=== PATIENT | male | born 1985 | race American Indian/Alaskan Native ===

== ENCOUNTER 2019-01-25 18:27 | Emergency (ER) | payer OTHER ==
--- NOTE | 2019-01-25 19:12 | Emergency Department Report ---
Chief Complaint: Abdominal Pain Stated Complaint: LFT SIDE NUMB/ABD PAIN Time Seen by Provider: 01/25/19 19:09 - HPI History of Present Illness: This is a 33 y.o. M. that presents to the ER with abdominal pain x 2 months. Reports numbness to left lateral leg. States pain was initially intermittent and today constant, sharp in intensity. Denies N/V/D - Exam Vital Signs: Vital Signs 01/25/19 19:09 Temperature 98.5 F Pulse Rate 59 L Respiratory 18 Rate Blood Pressure 107/71 O2 Sat by Pulse 100 Oximetry MSE screening note: Focused history and physical exam performed. Due to findings the following was ordered: Labs ED Disposition for MSE Condition: Stable
[2019-01-25 19:35] LABS: Basophils % (Auto) 0.3 % (0.0-1.8); Eosinophils # (Auto) 0.1 K/mm3 (0.0-0.4); Eosinophils % (Auto) 0.7 % (0.0-4.3); Hematocrit 46.8 % (35.5-45.6); Hemoglobin 15.7 gm/dl (11.8-15.2); Lymphocytes % (Auto) 20.7 % (13.4-35.0); Mean Corpuscular HGB Conc 34 % (32-34); Mean Corpuscular Volume 85 fl (84-94); Monocytes % (Auto) 10.4 % (0.0-7.3); Platelet Count 284 K/mm3 (140-440); Red Blood Count 5.52 M/mm3 (3.65-5.03)
[2019-01-25 19:51] LABS: Bilirubin,Urine NEG (Negative); Blood,Urine NEG (Negative); Color,Urine Yellow (Yellow); Protein,Urine <15 mg/dL mg/dL (Negative); Urobilinogen,Urine < 2.0 mg/dL (<2.0)
[2019-01-25 19:53] LABS: Alanine Aminotransferase 23 units/L (7-56); Albumin 4.1 g/dL (3.9-5); BUN/Creatinine Ratio 9; Blood Urea Nitrogen 10 mg/dL (9-20); Calcium 9.7 mg/dL (8.4-10.2); Hemolysis Index 7
[2019-01-25] MEDS ORDERED: ALUM-MAG HYDROX-SIMETH 200-200-20MG/5ML PO ONE (23:31)
[2019-01-25] MEDS ORDERED: LIDOCAINE VISCOUS 2% PO ONE (23:31)
[2019-01-25] MEDS ORDERED: IBUPROFEN PO ONE (23:31)
--- NOTE | 2019-01-25 23:39 | Emergency Department Report ---
ED Abdominal Pain HPI - General Chief Complaint: Abdominal Pain Stated Complaint: LFT SIDE NUMB/ABD PAIN Time Seen by Provider: 01/25/19 19:09 Source: patient Mode of arrival: Ambulatory Limitations: No Limitations - History of Present Illness Initial Comments: This is a 33-year-old Afro-[place] who presents with generalized abdominal pain past 2 months patient denies nausea vomiting no fever chills described pains as gnawing exacerbated by states associated early satiety belching bloating heartburn . Occasional EtOH occasional smoking secondary complaint of low back pain radiating to left leg causing some tingling and numbness to her left lateral thigh patient denies fall or injury or trauma patient is ambulatory to baseline per patient there is no mass or decrease in bowel or bladder function MD Complaint: abdominal pain Onset/Timin -: month(s) Location: LLQ, RLQ Radiation: none Severity: moderate Severity scale (0 -10): 4 Quality: aching, burning Consistency: intermittent Improves With: nothing Worsens With: eating, movement (position) Associated Symptoms: nausea. denies: diarrhea, fever, chills, constipation, dysuria, hematemesis, melena, hematuria - Related Data Previous Rx's Medication Instructions Recorded Last Taken Type Cyclobenzaprine [Flexeril] 10 mg PO TID PRN #30 tablet 01/26/19 Unknown Rx Famotidine [Pepcid] 20 mg PO BID #60 tablet 01/26/19 Unknown Rx Naproxen [Naprosyn TAB] 500 mg PO BID PRN #30 tablet 01/26/19 Unknown Rx Allergies Allergy/AdvReac Type Severity Reaction Status Date / Time No Known Allergies Allergy Unverified 01/25/19 18:29 ED Review of Systems ROS: Stated complaint: LFT SIDE NUMB/ABD PAIN Other details as noted in HPI Constitutional: denies: chills, fever Eyes: as per HPI ENT: denies: ear pain, throat pain Respiratory: denies: cough, shortness of breath, wheezing Cardiovascular: denies: chest pain, palpitations Endocrine: no symptoms reported Gastrointestinal: abdominal pain. denies: nausea, vomiting, diarrhea, constipation, hematemesis, melena, hematochezia Genitourinary: denies: urgency, dysuria Musculoskeletal: back pain, other (LLE tingling). denies: joint swelling, arthralgia Skin: denies: rash, lesions Neurological: denies: headache, weakness, paresthesias Psychiatric: denies: anxiety, depression Hematological/Lymphatic: denies: easy bleeding, easy bruising ED Past Medical Hx - Past Medical History Previous Medical History?: No - Surgical History Past Surgical History?: No - Social History Smoking Status: Current Every Day Smoker - Medications Home Medications: Home Medications Medication Instructions Recorded Confirmed Last Taken Type Cyclobenzaprine [Flexeril] 10 mg PO TID PRN #30 tablet 01/26/19 Unknown Rx Famotidine [Pepcid] 20 mg PO BID #60 tablet 01/26/19 Unknown Rx Naproxen [Naprosyn TAB] 500 mg PO BID PRN #30 tablet 01/26/19 Unknown Rx ED Physical Exam - General Limitations: No Limitations General appearance: alert, in no apparent distress - Head Head exam: Present: atraumatic - Eye Eye exam: Present: normal appearance, PERRL, EOMI Pupils: Present: normal accommodation - ENT ENT exam: Present: mucous membranes moist - Neck Neck exam: Present: normal inspection - Respiratory Respiratory exam: Present: normal lung sounds bilaterally. Absent: respiratory distress - Cardiovascular Cardiovascular Exam: Present: regular rate, normal rhythm, normal heart sounds. Absent: systolic murmur, diastolic murmur, rubs, gallop - GI/Abdominal GI/Abdominal exam: Present: soft, tenderness (mild tenderness to deep palpation), normal bowel sounds. Absent: distended, guarding, rebound, rigid, bruit, hernia - Rectal Rectal exam: Present: deferred - Extremities Exam Extremities exam: Present: normal inspection, full ROM, normal capillary refill. Absent: tenderness, pedal edema, joint swelling, calf tenderness - Back Exam Back exam: Present: normal inspection, full ROM, tenderness (Left lateral back muscle pain to deep palpation), muscle spasm, paraspinal tenderness. Absent: CV A tenderness (R), CVA tenderness (L), vertebral tenderness, rash noted - Neurological Exam Neurological exam: Present: alert, oriented X3, CN II-XII intact, normal gait, reflexes normal. Absent: motor sensory deficit - Expanded Neurological Exam Expanded Patient oriented to: Present: person, place, time Speech: Present: fluid speech Cranial nerves: EOM's Intact: Normal, Gag Reflex: Normal, Tongue Deviation: Normal, Nystagmus: Normal, Facial Sensation: Normal Cerebellar function: Finger to Nose: Normal, Heel to [place]: Normal, Romberg: Normal Upper motor neuron: Danielito Neglect: Normal, Pronator Drift: Normal, Babinski Sign: Normal, Sensory Extinction: Normal Sensory exam: Lower Extremity Light Touch: Normal, Lower Extremity Pin Prick: Normal, Lower Extremity Temperature: Normal, LE 2 Point Discrimination: Normal Motor strength exam: RUE: 5, LUE: 5, RLE: 5, LLE: 5 DTR: ankle (R): 2+, ankle (L): 2+ Best Eye Response (Rhina): (4) open spontaneously Best Motor Response (Rhina): (6) obeys commands Best Verbal Response (Kane): (5) oriented Kane Total: 15 - Psychiatric Psychiatric exam: Present: normal affect, normal mood - Skin Skin exam: Present: warm, dry, intact, normal color. Absent: rash ED Course Vital Signs 01/25/19 01/26/19 19:09 00:01 Temperature 98.5 F 97.6 F Pulse Rate 59 L 44 L Respiratory 18 16 Rate Blood Pressure 107/71 Blood Pressure 100/73 [Left] O2 Sat by Pulse 100 100 Oximetry ED Medical Decision Making - Lab Data Result diagrams: 01/25/19 19:20 01/25/19 Unknown Labs 01/25/19 01/25/19 01/25/19 19:20 Unknown Unknown WBC 9.4 RBC 5.52 H Hgb 15.7 H Hct 46.8 H MCV 85 MCH 28 MCHC 34 RDW 15.0 Plt Count 284 Lymph % (Auto) 20.7 [place] % (Auto) 10.4 H Eos % (Auto) 0.7 Baso % (Auto) 0.3 Lymph # 2.0 [place] # 1.0 H Eos # 0.1 Baso # 0.0 Seg Neutrophils % 67.9 Seg Neutrophils # 6.4 Sodium 138 Potassium 4.0 Chloride 101.6 Carbon Dioxide 25 Anion Gap 15 BUN 10 Creatinine 1.1 Estimated GFR > 60 BUN/Creatinine Ratio 9 Glucose 122 H Calcium 9.7 Total Bilirubin 0.30 AST 29 ALT 23 Alkaline Phosphatase 50 Total Protein 7.2 Albumin 4.1 Albumin/Globulin Ratio 1.3 Lipase 37 Urine Color Yellow Urine Turbidity Clear Urine pH 6.0 Ur Specific [place] 1.015 Urine Protein <15 mg/dl Urine Glucose (UA) Neg Urine Ketones Neg Urine Blood Neg Urine Nitrite Neg Urine Bilirubin Neg Urine Urobilinogen < 2.0 Ur Leukocyte Esterase Neg Urine WBC (Auto) 1.0 Urine RBC (Auto) 2.0 - Radiology Data Radiology results: report reviewed, image reviewed Ordering Physician: MIKE GREEN NP Date of Service: 01/25/19 Procedure(s): XR abdomen 1V ap Accession Number(s): [id number] cc: MIKE GREEN NP Fluoro Time In Minutes: PROCEDURE: XR ABDOMEN 1V AP TECHNIQUE: Abdominal radiograph, single view. HISTORY: abdominal pain COMPARISONS: None . FINDINGS: Bowel gas pattern: Nonobstructive . Masses or calcifications: None . Bony structures: No significant abnormality . Other: None . IMPRESSION: No acute abnormality. This document is electronically signed by Rafael Iyer MD., Jan 26 2019 12:02:59 AM ET Transcribed By: CO Dictated By: RAFAEL IYER MD Electronically Authenticated By: RAFAEL IYER MD Signed Date/Time: 01/26/193 DD/ 52 TD/TT: 01/25/192352 - Medical Decision Making KUB nonobstructive gas pattern, labs normal, pain improved with GI cocktail, pt is tolerating po intake without n/v plan: pepcid po bid, decrease ETOH intake, naproxen prn chronic back pain follow up with pcp given referral to pcp 2-3 days, pt verbalized agreement and understanding of discharge plan. Critical care attestation.: If time is entered above; I have spent that time in minutes in the direct care of this critically ill patient, excluding procedure time. ED Disposition Clinical Impression: Abdominal pain Qualifiers: Abdominal location: unspecified location Qualified Code(s): R10.9 - Unspecified abdominal pain Lumbar strain Qualifiers: Encounter type: initial encounter Qualified Code(s): S39.012A - Strain of muscle, fascia and tendon of lower back, initial encounter Disposition: TO HOME OR SELFCARE Is pt being admited?: No Does the pt Need Aspirin: No Condition: Stable Instructions: Abdominal Pain (ED), Low Back Strain (ED), Core Strengthening Exercises (GEN) Prescriptions: Cyclobenzaprine [Flexeril] 10 mg PO TID PRN #30 tablet PRN Reason: Muscle Spasm Naproxen [Naprosyn TAB] 500 mg PO BID PRN #30 tablet PRN Reason: pain Famotidine [Pepcid] 20 mg PO BID #60 tablet Referrals: [facility] [Outside] - 3-5 Days Forms: Work/School Release Form(ED) Time of Disposition: 00:34
[2019-01-26 00:03] VITALS: BP 100/73
--- NOTE | 2019-01-26 00:04 | XRay Report ---
PROCEDURE: XR ABDOMEN 1V AP TECHNIQUE: Abdominal radiograph, single view. HISTORY: abdominal pain COMPARISONS: None . FINDINGS: Bowel gas pattern: Nonobstructive . Masses or calcifications: None . Bony structures: No significant abnormality . Other: None . IMPRESSION: No acute abnormality. This document is electronically signed by Rafael Iyer MD., Jan 26 2019 12:02:59 AM ET
== END 2019-01-26 00:50 | disposition home or self-care (01) ==
LOC: ED 18:27
DX: S39.012A Strain of muscle, fascia and tendon of lower back, initial encounter (principal); R10.84 Generalized abdominal pain; F17.200 Nicotine dependence, unspecified, uncomplicated; X58.XXXA Exposure to other specified factors, initial encounter; Y93.89 Activity, other specified; Y92.89 Other specified places as the place of occurrence of the external cause; Y99.8 Other external cause status
CPT/HCPCS: 36415; 74018; 80053; 81001; 83690; 85025

== ENCOUNTER 2019-03-28 00:36 | Emergency (ER) | payer SELFPAY ==
[2019-03-28 01:07] LABS: Basophils # (Auto) 0.1 K/mm3 (0.0-0.1); Basophils % (Auto) 0.6 % (0.0-1.8); Eosinophils # (Auto) 0.2 K/mm3 (0.0-0.4); Eosinophils % (Auto) 1.5 % (0.0-4.3); Hematocrit 47.4 % (35.5-45.6); Hemoglobin 16.4 gm/dl (11.8-15.2); Lymphocytes % (Auto) 17.8 % (13.4-35.0); Mean Corpuscular HGB Conc 35 % (32-34); Mean Corpuscular Volume 85 fl (84-94); Monocytes # (Auto) 1.1 K/mm3 (0.0-0.8); Monocytes % (Auto) 10.3 % (0.0-7.3); Platelet Count 320 K/mm3 (140-440); Red Cell Distribution Width 14.1 % (13.2-15.2)
[2019-03-28 01:11] LABS: Bilirubin,Urine NEG (Negative); Blood,Urine NEG (Negative); Color,Urine Yellow (Yellow); Mucus,Urine FEW /HPF; Protein,Urine <15 mg/dL mg/dL (Negative); Urobilinogen,Urine < 2.0 mg/dL (<2.0)
[2019-03-28 01:25] LABS: Alanine Aminotransferase 21 units/L (7-56); Albumin 4.7 g/dL (3.9-5); BUN/Creatinine Ratio 6; Blood Urea Nitrogen 7 mg/dL (9-20); Calcium 9.8 mg/dL (8.4-10.2); Hemolysis Index 6
[2019-03-28] MEDS ORDERED: ZOFRAN IV STA (01:52)
[2019-03-28] MEDS ORDERED: LEVSIN SL SL ONE (01:52)
[2019-03-28] MEDS ORDERED: NACL 0.9% 1000 ML 1,000 ML IV ONE (01:52)
--- NOTE | 2019-03-28 02:08 | Emergency Department Report ---
ED Abdominal Pain HPI - General Chief Complaint: Abdominal Pain Stated Complaint: ABD/BODY PAIN Time Seen by Provider: 03/28/19 01:21 Source: patient Mode of arrival: Ambulatory Limitations: No Limitations - History of Present Illness Initial Comments: 33-year-old male was department complaining of a flareup of abdominal pain. States that he had a similar episode about 2-3 months ago and now having very similar flare. States that he was provided with medications for pain never really 100 since subsided reports no hemoptysis, hematemesis, hematochezia. No diarrhea, no constipation, shortness of breath MD Complaint: abdominal pain Location: diffuse Radiation: LUQ, RUQ Migration to: no migration Severity: moderate Quality: aching Consistency: constant Improves With: nothing Worsens With: eating Associated Symptoms: denies: vomiting, diarrhea, chills, constipation, dysuria, hematemesis, hematochezia, melena, hematuria, anorexia, syncope, other - Related Data Previous Rx's Medication Instructions Recorded Last Taken Type Cyclobenzaprine [Flexeril] 10 mg PO TID PRN #30 tablet 01/26/19 Unknown Rx Famotidine [Pepcid] 20 mg PO BID #60 tablet 01/26/19 Unknown Rx Naproxen [Naprosyn TAB] 500 mg PO BID PRN #30 tablet 01/26/19 Unknown Rx Hyoscyamine Subl [Levsin Sl] 0.125 mg SL Q4HR PRN #16 tablet 03/28/19 Unknown Rx Ondansetron [Zofran ODT TAB] 8 mg PO Q12HR #14 tab.rapdis 03/28/19 Unknown Rx Allergies Allergy/AdvReac Type Severity Reaction Status Date / Time No Known Allergies Allergy Unverified 01/25/19 18:29 ED Review of Systems ROS: Stated complaint: ABD/BODY PAIN Other details as noted in HPI Comment: All other systems reviewed and negative ED Past Medical Hx - Past Medical History Previous Medical History?: No - Surgical History Past Surgical History?: No - Social History Smoking Status: Current Every Day Smoker Substance Use Type: Alcohol - Medications Home Medications: Home Medications Medication Instructions Recorded Confirmed Last Taken Type Cyclobenzaprine [Flexeril] 10 mg PO TID PRN #30 tablet 01/26/19 Unknown Rx Famotidine [Pepcid] 20 mg PO BID #60 tablet 01/26/19 Unknown Rx Naproxen [Naprosyn TAB] 500 mg PO BID PRN #30 tablet 01/26/19 Unknown Rx Hyoscyamine Subl [Levsin Sl] 0.125 mg SL Q4HR PRN #16 tablet 03/28/19 Unknown Rx Ondansetron [Zofran ODT TAB] 8 mg PO Q12HR #14 tab.rapdis 03/28/19 Unknown Rx ED Physical Exam - General Limitations: No Limitations General appearance: alert, in no apparent distress - Head Head exam: Present: atraumatic, normocephalic - Eye Eye exam: Present: normal appearance - ENT ENT exam: Present: mucous membranes moist - Neck Neck exam: Present: normal inspection - Respiratory Respiratory exam: Present: normal lung sounds bilaterally. Absent: respiratory distress, wheezes, rales, chest wall tenderness, accessory muscle use - Cardiovascular Cardiovascular Exam: Present: regular rate, normal rhythm. Absent: systolic murmur, diastolic murmur, rubs, gallop - GI/Abdominal GI/Abdominal exam: Present: soft, tenderness, normal bowel sounds. Absent: distended, guarding, rebound, rigid, hypoactive bowel sounds, organomegaly, mass, bruit, pulsatile mass, hernia - Rectal Rectal exam: Present: deferred - Extremities Exam Extremities exam: Present: normal inspection, full ROM, normal capillary refill - Back Exam Back exam: Present: normal inspection. Absent: CVA tenderness (R), CVA tenderness (L) - Neurological Exam Neurological exam: Present: alert, oriented X3, CN II-XII intact - Psychiatric Psychiatric exam: Present: normal affect, normal mood - Skin Skin exam: Present: warm, dry, intact, normal color. Absent: rash ED Course Vital Signs 03/28/19 00:45 Temperature 98.2 F Pulse Rate 106 H Respiratory 20 Rate Blood Pressure 127/75 O2 Sat by Pulse 98 Oximetry ED Medical Decision Making - Lab Data Result diagrams: 03/28/19 00:51 03/28/19 00:51 Critical care attestation.: If time is entered above; I have spent that time in minutes in the direct care of this critically ill patient, excluding procedure time. ED Disposition Clinical Impression: Abdominal pain, Normal computed tomography scan of chest Disposition: DC-01 TO HOME OR SELFCARE Is pt being admited?: No Does the pt Need Aspirin: No Condition: Stable Instructions: Acute Abdominal Pain (ED) Prescriptions: Hyoscyamine Subl [Levsin Sl] 0.125 mg SL Q4HR PRN #16 tablet PRN Reason: Spasms Ondansetron [Zofran ODT TAB] 8 mg PO Q12HR #14 tab.rapdis [facility]: [facility]Primary Care Provider] - 3-5 Days [facility] [Provider Group] - 2-3 Days (Be sure to follow with [facility] in the very near future to further evaluate your episodes of abdominal pain)
--- NOTE | 2019-03-28 02:38 | Cat Scan Report ---
CT abdomen pelvis w con INDICATION / CLINICAL INFORMATION: Lower ABD Pain. TECHNIQUE: All CT scans at this location are performed using CT dose reduction for ALARA by means of automated e xposure control. COMPARISON: None available. FINDINGS: No free fluid is seen in the abdomen. Liver, spleen, kidneys, pancreas, adrenal glands and great vess els are normal. In the pelvis, no free fluid is seen. No enlarged lymph nodes are identified. The bladder and the carlos endix are normal. No significant skeletal abnormality is identified. IMPRESSION: No acute findings. Negative CT abdomen and pelvis. Signer Name: Ruy Chavarria MD FACR Signed: 03/28/2019 2:33 AM Workstation Name: [id number]
[2019-03-28 06:02] VITALS: BP 110/70
== END 2019-03-28 05:03 | disposition home or self-care (01) ==
LOC: ED 00:36
DX: R10.9 Unspecified abdominal pain (principal); F17.200 Nicotine dependence, unspecified, uncomplicated
CPT/HCPCS: 36415; 74177; 80053; 81001; 83690; 85025; 96361; 96374; 99284; J2405; J7030; Q9967

== ENCOUNTER 2020-08-14 04:14 | Emergency (ER) | payer SELFPAY ==
[2020-08-14 04:21] VITALS: BP 132/83
== END 2020-08-14 05:00 ==
LOC: ED 04:14
DX: M79.605 Pain in left leg (principal); Z53.21 Procedure and treatment not carried out due to patient leaving prior to being seen by health care provider